=== PATIENT | female | born 1945 | race Caucasian/White ===

== ENCOUNTER 2025-02-16 09:37 | Outpatient (CLI) | payer MEDICARE | END 2025-02-16 09:38 | disposition home or self-care (01) | LOC: CSHMAMMO 09:37 | PROVIDERS: ATTEND Internal Medicine | DX: R92.8 Other abnormal and inconclusive findings on diagnostic imaging of breast (principal) | CPT/HCPCS: 77065; G0279 ==

== ENCOUNTER 2025-06-05 20:40 | Inpatient (IN) | payer MEDICARE ==
[2025-06-05 22:16] VITALS: BMI 24.3
[2025-06-05] MEDS ORDERED: Senokot S 8.6-50 MG TAB PO PRN (23:12)
[2025-06-05] MEDS ORDERED: Ondansetron PF 4 MG/2 ML Vial IVP PRN (23:12)
[2025-06-05] MEDS ORDERED: Acetaminophen 325 MG TAB PO PRN (23:12)
[2025-06-05] MEDS ORDERED: Bisacodyl 10 MG SUPP PR PRN (23:12)
[2025-06-05] MEDS ORDERED: Melatonin 3 MG TAB PO PRN (23:12)
[2025-06-05] MEDS ORDERED: Electrolyte Replacement Protocol 1 EACH FS SCH (23:15)
[2025-06-05] MEDS ORDERED: Potassium Chloride 20 MEQ in Premix 1 BAG IVPB PRN (23:30)
[2025-06-05] MEDS ORDERED: Magnesium 2 GM/50 ML(in water) 2 GM in Premix 1 BAG IVPB PRN (23:30)
[2025-06-05] MEDS ORDERED: PHOS-NAK 1 PKT PACK PO PRN (23:30)
[2025-06-06] MEDS: Metoprolol Succinate XL 50 MG ER.TAB PO SCH (00:12)
[2025-06-06 00:30] LABS: Troponin I 0.179 ng/mL (< 0.028)
[2025-06-06 04:22] LABS: ALT (SGPT) 13 U/L (Less than 34); AST (SGOT) 22 U/L (11-34); Albumin 3.7 g/dL (3.1-4.5); Alkaline Phosphatase 65 U/L (40-110); Anion Gap 12 mmol/L (10-20); BUN (Urea Nitrogen) 15 mg/dL (9.8-20.1); Bilirubin, Total 0.4 mg/dL (0.3-1.2); Calc. Creatinine Clearance 57 mL/min (70-130); Calcium 9.2 mg/dL (7.8-10.44); Carbon Dioxide 23 mmol/L (23-31); Chloride 107 mmol/L (98-107); Globulin 2.9 g/dL (2.4-3.5); Glucose 102 mg/dL (83-110); Potassium 4.2 mmol/L (3.5-5.1); Sodium 138 mmol/L (136-145)
[2025-06-06 04:44] LABS: Hematocrit 33.4 % (34.9-44.5); Hemoglobin 10.5 g/dL (12.0-15.5); Mean Corpuscular Hemoglobin 23.9 pg (27.0-33.0); Mean Corpuscular Volume 76.1 fL (81.6-98.3); Platelet Count 147 10x3/uL (150-450); Red Blood Cell (RBC) Count 4.39 10x6/uL (3.90-5.03); White Blood Cell (WBC) Count 8.05 10x3/uL (3.5-10.5)
[2025-06-06 04:45] LABS: #Basophils 0.03 10x3/uL (0.0-0.2); #Eosinophils 0.13 10x3/uL (0.0-0.5); #Monocytes 0.75 10x3/uL (0.0-1.1); #Neutrophils 3.96 10x3/uL (1.5-8.4); %Basophils 0.4 % (0.0-2.0); %Eosinophils 1.6 % (0.0-6.0); %Lymphocytes 39.3 % (18.0-47.0); %Monocytes 9.3 % (0.0-10.0); %Neutrophils 49.2 % (40.0-75.0)
[2025-06-06 08:11] LABS: Cardiac Risk 2.1 (Less than 4.5); Cholesterol 130.0 mg/dl (< 200 Desired); HDL Cholesterol 61.0 mg/dL (>60 Neg Risk); LDL Cholesterol, Calculated 49.0 mg/dL; Triglycerides 98.0 mg/dL (Less than 150)
[2025-06-06] MEDS ORDERED: Enoxaparin 60 MG (0.6 mL) SYRINGE SC SCH (09:00)
[2025-06-06 16:54] VITALS: BP 123/60; TEMP 98.3
== END 2025-06-06 18:36 | disposition home or self-care (01) | DRG 309 ==
LOC: CSHTELE 20:40
PROVIDERS: ADMIT Internal Medicine; ATTEND Nurse Practitioner Family
DX: I48.0 Paroxysmal atrial fibrillation (principal); J81.1 Chronic pulmonary edema; I10 Essential (primary) hypertension; E03.9 Hypothyroidism, unspecified; E78.5 Hyperlipidemia, unspecified; Z88.0 Allergy status to penicillin; Z79.82 Long term (current) use of aspirin; Z79.899 Other long term (current) drug therapy; Z79.890 Hormone replacement therapy; Z90.49 Acquired absence of other specified parts of digestive tract; F17.210 Nicotine dependence, cigarettes, uncomplicated; Z71.6 Tobacco abuse counseling; Z95.820 Peripheral vascular angioplasty status with implants and grafts; Z82.3 Family history of stroke; Z82.49 Family history of ischemic heart disease and other diseases of the circulatory system; Z95.818 Presence of other cardiac implants and grafts; I73.9 Peripheral vascular disease, unspecified; Z79.02 Long term (current) use of antithrombotics/antiplatelets
CPT/HCPCS: 36415; 80053; 80061; 83036; 85025; 93005; 93010; 93306